=== PATIENT | female | born 1975 | race Caucasian/White ===

== ENCOUNTER 2021-11-13 10:26 | Emergency (ER) | payer OTHER ==
[~2021-11-13] VITALS: Ht 172.7 cm; Wt 63.5 kg
[2021-11-13] MEDS ORDERED: Amoxicillin500 MG PO (10:37)
== END 2021-11-13 10:37 | disposition home or self-care (01) ==
LOC: ER 10:26
DX: K11.20 Sialoadenitis, unspecified (principal)
CPT/HCPCS: 99283